=== PATIENT | female | born 1985 | race African-American/Black ===

== ENCOUNTER 2023-11-17 15:50 | Emergency (ER) | payer OTHER, SELFPAY ==
[2023-11-17 16:00] VITALS: BP 135/93; BMI 21.8
--- NOTE | 2023-11-17 16:24 | ED.GENMED ---
History of Present Illness
General
Chief Complaint: Crisis Evaluation
Source: patient and police
Exam Limitations: none
Time Seen by Provider: 11/17/23 16:11
Nursing documentation reviewed up to this point in time: agreed with
History of Present Illness
History of Present Illness:
38-year-old female without significant past medical history presenting to the emergency department today via police with concerns of disorganized thoughts and poor living situation concerning for her mental wellbeing. She denies any specific
complaints or concerns at this point.
Review of Systems
Review of Systems
Allergies reviewed?: Yes
All Other Systems: ROS reviewed and negative except as documented in HPI and ROS
Phy Exam
Physical Exam
Physical Exam:
GENERAL: Alert , in no apparent distress
EYE: pupils equal and reactive
NECK: Supple, no significant adenopathy.
ENT: o/p clr, mmm.
CARDIAC: Regular rate and rhythm .
LUNGS: Clear breath sounds bilaterally, no acute respiratory distress, no wheezes/rales/rhonchi
ABDOMEN: Soft, without focal tenderness, no r/g, no cvat
NEUROLOGICAL: Alert and oriented, no focal neuro deficits
SKIN: Warm and dry, skin intact.
MUSCULOSKELETAL: No edema, well perfused.
PSYCH: Normal and appropriate interaction. Patient answering questions appropriately thought seem to be organized
Course
Orders/Labs/Results
Orders:
Orders
11/17/23 16:12
Crisis Consult Urgent
Reason for Consult: psych eval per police
11/17/23 19:06
EKG [Electrocardiogram (*1)] Urgent
Reason for Study: Fatigue / Weakness
11/17/23 19:07
EKG- Treatment ONCE
Test Result ONCE
11/17/23 19:18
Alcohol Urgent
Beta Hcg Serum Qualitative Screen [HCG, Serum Qualitative Screen] Urgent
CBC/With Diff [Complete Blood Count/With Diff] Urgent
CMP [Comprehensive Metabolic Panel] Urgent
Abnormal Lab Results
11/17/23
19:18
RBC 4.15 L 10^6/uL
(4.20-5.40)
Hct 36.7 L %
(37.0-47.0)
MCH 31.1 H pg
(27.0-31.0)
Potassium 3.4 L mmol/L
(3.5-5.1)
Glucose 103 H mg/dl
(70-99)
11/17/23 19:18
11/17/23 19:18
Vital Signs
Initial and Last Documented VS:
Initial Vital Signs
Temp Pulse Resp BP Pulse Ox
97.6 F 62 17 135/93 100
11/17/23 16:00 11/17/23 16:00 11/17/23 16:00 11/17/23 16:00 11/17/23 16:00
Last Documented Vital Signs
Temp Pulse Resp BP Pulse Ox
97.6 F 62 17 135/93 100
11/17/23 16:00 11/17/23 16:00 11/17/23 16:00 11/17/23 16:00 11/17/23 16:00
MDM/Problems Addressed
MDM/Problems Addressed:
38-year-old female presenting to the emergency department today for psychiatric assessment. She denies any current symptoms or concerns. Please claims that she will be rambling incoherently when they went to arrest her also she seems to be poorly
kempt. Here vital signs are normal patient no distress able to answer all questions directly fully alert and oriented no medical symptoms or physical exam findings. Crisis assessment was ordered. Patient assessed by crisis then by telepsych
upholding 302 with concerns of inability to care for self she seems to be very confused here. Labs ordered pending further assessment and potential placement.
*Critical Care Note
Total Time (30-74mins, 75-104mins- exclusive of procedures): Not Applicable
ED Attending Note
-
Portions of this chart may have been created with voice recognition software.� Occasional wrong word or��sound alike� substitutions may have occurred due to the inherent limitations of voice recognition software.
Discharge Plan
Departure
Patient Disposition: Psych Facility
Date of Disposition: 11/17/23
Time of Disposition: 21:52
Discharge Problem:
Psychiatric disturbance
Prescriptions:
No Action
No Current Medications
0
Referrals:
NONE,* [Family Provider] -
Interventions
Interventions:
*Risk Screen - Suicide Last Done: 11/17/23 16:09
*General Assessment Last Done: 11/17/23 16:11
*Neglect/Abuse Screening Last Done: 11/17/23 16:09
ED- Fall Risk Assessment Last Done: 11/17/23 16:10
*ED COVID-19 Vaccine History Last Done: 11/17/23 16:11
*Nursing Disposition Last Done: 11/18/23 00:12
ED-Psychological Assessment Last Done: 11/17/23 16:10
Discharge Date and Time
Discharge Date/Time: 11/18/23 00:13
Print Language: IRISH
[2023-11-17 19:28] LABS: % Basophils 0.7 % (0-2); % Eosinophils 0.9 % (0-6); % Lymphocytes 49.4 % (20.5-51.1); % Monocytes 5.3 % (1.7-9.3); % Neutrophils 43.7 % (42.2-75.2); Absolute Eosinophils 0.1 10^3/uL (0-0.7); Absolute Lymphocytes 2.7 10^3/uL (1.2-3.4); Absolute Monocytes 0.3 10^3/uL (0.1-0.6); Absolute Neutrophils 2.4 10^3/uL (1.4-6.5); Hematocrit 36.7 % (37.0-47.0); Hemoglobin 12.9 g/dL (12.0-16.0); Mean Corp Hgb Conc. 35.1 g/dL (33.0-37.0); Mean Corpuscular Hgb 31.1 pg (27.0-31.0); Mean Corpuscular Volume 88.4 fL (81.0-99.0); Nucleated Red Blood Cells % 0 %; Platelet Count 230 10^3/uL (130-400); Red Blood Cell Count 4.15 10^6/uL (4.20-5.40); Red Cell Dist. Width 12.6 % (11.5-14.5); White Blood Cell Count 5.5 10^3/uL (4.8-10.8)
[2023-11-17 19:35] LABS: HCG, Serum Qualitative Screen Negative
[2023-11-17 19:37] LABS: ALT (SGPT) 11 U/L (0-35); AST (SGOT) 25 U/L (14-36); Albumin 4.9 g/dl (3.5-5.0); Alkaline Phosphatase 46 U/L (38-126); Blood Urea Nitrogen 8 mg/dl (7-17); Carbon Dioxide 28 mmol/L (22-30); Chloride 102 mmol/L (98-107); Estimated Creatinine Clearance 100 ml/min; Glucose 103 mg/dl (70-99); Potassium 3.4 mmol/L (3.5-5.1); Sodium 138 mmol/L (135-145); Total Bilirubin 0.6 mg/dl (0.2-1.3); Total Protein 7.9 g/dl (6.3-8.2); eGFR > 60.00
[2023-11-17 19:38] LABS: Alcohol None Detected
== END 2023-11-18 00:13 ==
LOC: EMR 15:50
PROVIDERS: Physician Assistant; EMERGENCY PHYSICIAN Emergency Medicine
DX: F99 Mental disorder, not otherwise specified (principal)
CPT/HCPCS: 99283; 80053; 82077; 84703; 85025; 93005